=== PATIENT | male | born 1990 | race Hispanic/Latino ===

== ENCOUNTER 2018-11-28 07:08 | Emergency (ER) | payer BC ==
[2018-11-28 07:12] VITALS: BMI 26.6
[2018-11-28] MEDS ORDERED: Alum-Mag Hydrox-Simethicone Susp (30 mL) PO ONE (07:50)
[2018-11-28] MEDS ORDERED: Alum-Mag Hydrox-Simethicone Susp (30 mL) ONE (08:01)
--- NOTE | 2018-11-28 08:12 | ED PDOC ---
HPI: Abdomen Time Seen by Provider: 11/28/18 07:17 Chief Complaint (Nursing): Abdominal Pain Chief Complaint (Provider): Abdominal Pain History Per: Patient History/Exam Limitations: no limitations Onset/Duration Of Symptoms: Days (x5), Worse Since (x5 hours) Location Of Pain/Discomfort: Epigastric Quality Of Discomfort: Sharp Associated Symptoms: Nausea, Vomiting. denies: Fever, Urinary Symptoms Additional Complaint(s): 28 y/o male with no significant pmhx presents to ER for evaluation of sharp epigastric pain associated with 2 episodes of nausea and vomiting onset 5 hours ago. Patient reports pain has been progressively getting worse. He states he ate sushi yesterday and drank alcohol heavily on Wednesday night. Patient denies radiation of pain, fever, abnormal stools and any urinary symptoms. PMD: non provided Past Medical History Reviewed: Historical Data, Nursing Documentation, Vital Signs Vital Signs: Last Vital Signs Temp 97.5 F L 11/28/18 07:11 Pulse 89 11/28/18 07:11 Resp 17 11/28/18 07:11 BP 125/78 11/28/18 07:11 Pulse Ox 100 11/28/18 07:11 - Medical History PMH: No Chronic Diseases - Surgical History Surgical History: No Surg Hx - Family History Family History: States: Unknown Family Hx - Social History Current smoker - smoking cessation education provided: No Alcohol: Social Drugs: Denies - Home Medications Home Medications: Ambulatory Orders Medication Instructions Recorded Dicyclomine [Bentyl] 20 mg PO BID #30 tab 11/28/18 - Allergies Allergies/Adverse Reactions: Allergies Allergy/AdvReac Type Severity Reaction Status Date / Time No Known Allergies Allergy Verified 11/28/18 07:50 Review of Systems ROS Statement: Except As Marked, All Systems Reviewed And Found Negative Constitutional: Negative for: Fever Gastrointestinal: Positive for: Nausea, Vomiting, Abdominal Pain (epigastric). Negative for: Hematochezia Genitourinary Male: Negative for: Dysuria, Hematuria Physical Exam - Reviewed Nursing Documentation Reviewed: Yes Vital Signs Reviewed: Yes - Physical Exam Appears: Positive for: Non-toxic Head Exam: Positive for: ATRAUMATIC, NORMOCEPHALIC Skin: Positive for: Normal Color, Warm, Dry Eye Exam: Positive for: Normal appearance, EOMI, PERRL Neck: Positive for: Normal, Painless ROM, Supple Cardiovascular/Chest: Positive for: Regular Rate, Rhythm. Negative for: Murmur Respiratory: Positive for: Normal Breath Sounds. Negative for: Wheezing Gastrointestinal/Abdominal: Positive for: Soft, Tenderness (to palpation in epigastric area). Negative for: Guarding, Rebound Back: Positive for: Normal Inspection. Negative for: L CVA Tenderness, R CVA Tenderness Extremity: Positive for: Normal ROM. Negative for: Pedal Edema, Deformity Neurologic/Psych: Positive for: Alert, Oriented (x3) - Laboratory Results Result Diagrams: 11/28/18 08:50 11/28/18 08:50 - ECG O2 Sat by Pulse Oximetry: 100 (RA) Pulse Ox Interpretation: Normal Medical Decision Making Medical Decision Making: Time: 0750 A/P: Well appearing male with epigastric pain --Likely GERD vs. gastritis vs. peptic ulcer disease --Less likely pancreatitis or biliary disease 1000 --Pain traveled to R side of abdomen --CT ordered 1230 --CT shows possible early appendicitis, howver patient's symptoms have resolved --Surgery recommends IVF And outpatient followup, unlikely appendicitis 130 --Patient remains well appearing, nontender in RLQ --Advised fluids, bentyl --Advised patient to followup with PMD --Strict return precautions were discussed Scribe Attestation: Documented by Lisa Ma, acting as a scribe for Dipesh Red MD. Provider Scribe Attestation: All medical record entries made by the Scribe were at my direction and personally dictated by me. I have reviewed the chart and agree that the record accurately reflects my personal performance of the history, physical exam, medical decision making, and the department course for this patient. I have also personally directed, reviewed, and agree with the discharge instructions and disposition. Disposition - Clinical Impression Clinical Impression: Gastroenteritis - Disposition Referrals: [facility] [Outside] Disposition: Routine/Home Disposition Time: 13:31 Condition: IMPROVED Prescriptions: Dicyclomine [Bentyl] 20 mg PO BID #30 tab Instructions: Gastroenteritis (ED) Forms: [employer] (Macedonian)
[2018-11-28] MEDS ORDERED: Sodium Chloride 0.9% 1,000 ML IV STA ×2 (08:56→12:53)
[2018-11-28 09:03] LABS: HEMOGLOBIN 16.7 g/dL (12.0-18.0); MEAN CELL VOLUME 87.1 fl (80.0-94.0); MEAN CORPUSCULAR HEMOGLOBIN 30.2 pg (27.0-31.0); MEAN CORPUSCULAR HGB CONC 34.7 g/dL (33.0-37.0); RBC 5.51 Mil/uL (4.40-5.90); RED CELL DISTRIBUTION WIDTH 12.8 % (11.5-14.5); WHITE BLOOD COUNT 12.7 K/uL (4.8-10.8)
[2018-11-28] MEDS ORDERED: Morphine 4 MG/ML VIAL ONE (09:12)
[2018-11-28 09:23] LABS: ALB/GLOB RATIO 1.3 (1.0-2.1); ALBUMIN 4.9 g/dL (3.5-5.0); ALT/SGPT 120 U/L (21-72); AST/SGOT 78 U/L (17-59); BILIRUBIN,DIRECT 0.1 mg/ml (0.0-0.4); BLOOD UREA NITROGEN 16 mg/dl (9-20); CALCIUM 10.5 mg/dL (8.4-10.2); GFR NON-AFRICAN AMERICAN > 60; LIPASE 142 U/L (23-300)
[2018-11-28] MEDS ORDERED: Sodium Chloride 0.9% 50 ML IV ONE (10:21)
[2018-11-28] MEDS ORDERED: Iohexol 300 100 ML IJ ONE (10:21)
--- NOTE | 2018-11-28 12:02 | CT ---
Date of service: 11/28/2018 PROCEDURE: CT Abdomen and Pelvis with Oral contrast. HISTORY: epig, niyah-umb, R sided abd pain COMPARISON: TECHNIQUE: Contiguous axial images of the abdomen and pelvis performed following intravenous injection of approximately 95 cc Omnipaque 300 contrast material. Additional 2D sagittal and coronal flow reformats generated. Radiation dose: Total exam DLP = 576.67 mGy-cm. This CT exam was performed using one or more of the following dose reduction techniques: Automated exposure control, adjustment of the mA and/or kV according to patient size, and/or use of iterative reconstruction technique. FINDINGS: LOWER THORAX: Lung bases are clear. LIVER: Liver exhibits normal size though mild fatty infiltration. No obvious hepatic masses collections or calcifications. Portal and splenic veins are opacified... GALLBLADDER AND BILE DUCTS: Gallbladder physiologically distended. No evidence of intraluminal gallbladder calculi. PANCREAS: Unremarkable. No mass. No ductal dilatation. SPLEEN: Spleen is mildly enlarged measuring nearly over 13 cm in AP dimension. No splenic masses collections or calcifications. ADRENALS: No adrenal adrenal lesions.. KIDNEYS AND URETERS: Unremarkable. No stone or hydronephrosis. BLADDER: Urinary bladder is physiologically distended. No evidence of intraluminal urinary bladder calculi.. REPRODUCTIVE: Unremarkable. APPENDIX: The appendix diameter ranges between 5 and 6 mm which is equivocal however no definitive evidence of surrounding inflammatory changes seen at this time to suggest acute appendicitis however clinical correlation with history, physical exam and laboratory values recommended to exclude the possibility of a very early acute appendicitis. BOWEL: Evaluation of the bowel is somewhat limited due to the lack of oral contrast material. Stomach is distended with liquid food debris and air. Multiple fluid-filled loops of small bowel are present few which are minimally distended in the lower pelvis region. Findings may represent mild ileus however diarrheal illness should be considered... Clinical correlation recommended. Liquid stool is also present within the cecum with more desiccated stool in the transverse colon. The descending colon exhibits mild wall thickening which is likely due to a combination of incomplete distension peristalsis and unopacified bowel however possibility of inflammatory process cannot be completely excluded. There also appears to be a few scattered colonic diverticula along the sigmoid colon however no radiographic evidence to suggest acute diverticulitis. PERITONEUM: Unremarkable. No fluid collection. No free air. LYMPH NODES: Unremarkable. No enlarged lymph nodes. VASCULATURE: Unremarkable. No aortic aneurysm. No aortic atherosclerotic calcification or mural plaque present. BONES: Mild multilevel degenerative spondylosis of the thoracic and lumbar spine OTHER FINDINGS: None. IMPRESSION: The appendix some measured between 5 and 6 mm however no obvious inflammatory changes seen in the adjacent mesentery. Findings are equivocal for early acute appendicitis therefore clinical correlation recommended. There are numerous loops of fluid-filled small bowel some of which appears slightly distended in the lower pelvis possibly representing ileus; rule out diarrheal illness... There also mild wall thickening of the descending colon which is likely due to some combination of incomplete distension peristalsis and unopacified stool however a localized colitis cannot be excluded Borderline-mild splenomegaly. Mild fatty hepatic infiltration.
[2018-11-28 12:28] VITALS: TEMP 98.8
[2018-11-28 12:35] LABS: SQUAMOUS EPITHIAL < 1 /hpf (0-5); URINE BILIRUBIN NEGATIVE (NEGATIVE); URINE BLOOD NEGATIVE (NEGATIVE); URINE CLARITY CLEAR (Clear); URINE COLOR YELLOW (YELLOW); URINE GLUCOSE (UA) NEG (NEGATIVE); URINE LEUKOCYTE ESTERASE NEG Leu/uL (Negative); URINE PROTEIN NEGATIVE (NEGATIVE); URINE UROBILINOGEN 0.2-1.0 mg/dL (0.2-1.0)
--- NOTE | 2018-11-28 12:57 | CP.PCM.CON ---
History of Present Illness - History of Present Illness History of Present Illness: General Surgery Consult Note for Dr. Walton Consult: Early onset appendicitis CC: Abdominal pain HPI: 28 year old male, no significant past medical history, presents to the emergency department with abdominal pain, nausea, and vomiting. Patient states he had sushi for dinner and woke up around 3AM with severe 8/10 epigastric pain that did not radiate. He had 2 episodes of NBNB vomit. He has never had this type of pain before. He tried drinking tea and ibuprofen which did not help. Pain is currently 2/10. Last bowel movement was yesterday, normal caliber. Has not passed gas while in the ED. Admits to a subjective fever. Denies chills, diarrhea, shortness of breath, chest pain, or urinary symptoms. PMH: none PSH: none FH: noncontributory SH: denies tobacco and drugs, social drinker ALL: NKDA Meds: none Review of Systems - Constitutional Constitutional: Fever. absent: Chills - EENT Eyes: absent: Blurred Vision, Change in Vision Nose/Mouth/Throat: absent: Nasal Congestion, Nasal Discharge - Cardiovascular Cardiovascular: absent: Chest Pain, Dyspnea - Respiratory Respiratory: absent: Cough, Dyspnea - Gastrointestinal Gastrointestinal: Abdominal Pain, Nausea, Vomiting. absent: Diarrhea - Genitourinary Genitourinary: absent: Difficulty Urinating, Dysuria - Musculoskeletal Musculoskeletal: absent: Back Pain, Neck Pain - Integumentary Integumentary: absent: Bleeding Lesions, Changing Lesions - Neurological Neurological: absent: Confusion, Dizziness - Psychiatric Psychiatric: absent: Anxiety, Depression Past Patient History - Past Social History Alcohol: Social Drugs: Denies - PSYCHIATRIC Hx Substance Use: No - ANESTHESIA Hx Anesthesia: No Meds Allergies/Adverse Reactions: Allergies Allergy/AdvReac Type Severity Reaction Status Date / Time No Known Allergies Allergy Verified 11/28/18 07:50 Physical Exam - Constitutional Appears: Well, Non-toxic, No Acute Distress - Head Exam Head Exam: ATRAUMATIC, NORMAL INSPECTION, NORMOCEPHALIC - Eye Exam Eye Exam: EOMI - ENT Exam ENT Exam: Mucous Membranes Moist - Respiratory Exam Respiratory Exam: NORMAL BREATHING PATTERN. absent: Respiratory Distress - Cardiovascular Exam Cardiovascular Exam: REGULAR RHYTHM. absent: Tachycardia - GI/Abdominal Exam GI & Abdominal Exam: Normal Bowel Sounds, Soft. absent: Distended, Guarding, Rebound, Tenderness - Neurological Exam Neurological exam: Alert, Oriented x3 - Psychiatric Exam Psychiatric exam: Normal Affect, Normal Mood - Skin Skin Exam: Dry, Intact, Normal Color, Warm Results - Vital Signs Recent Vital Signs: Last Vital Signs Temp 98.8 F 11/28/18 12:27 Pulse 84 11/28/18 12:27 Resp 15 11/28/18 12:27 BP 122/57 L 11/28/18 12:27 Pulse Ox 100 11/28/18 12:27 - Labs Result Diagrams: 11/28/18 08:50 11/28/18 08:50 Labs: Laboratory Results - last 24 hr 11/28/18 11/28/18 08:50 08:50 WBC 12.7 H RBC 5.51 Hgb 16.7 Hct 47.9 MCV 87.1 MCH 30.2 MCHC 34.7 RDW 12.8 Plt Count 235 Sodium 139 Potassium 4.9 Chloride 102 Carbon Dioxide 25 Anion Gap 17 BUN 16 Creatinine 0.8 Est GFR ( Amer) > 60 Est GFR (Non-Af Amer) > 60 Random Glucose 104 Calcium 10.5 H Total Bilirubin 0.9 Direct Bilirubin 0.1 AST 78 H ALT 120 H Alkaline Phosphatase 47 Total Protein 8.8 H Albumin 4.9 Globulin 3.9 Albumin/Globulin Ratio 1.3 Lipase 142 Assessment & Plan - Assessment and Plan (Free Text) Assessment: 28M w/ abdominal pain, nausea vomiting likely 2/2 gastroenteritis Plan: 2L fluid bolus and oral hydration as tolerated liquid diet until symptoms resolve, advance diet as tolerated No surgical intervention at this present time If symptoms worsen, patient instructed to return to the ED for further evaluation D/w Dr. Anton Ortega PGY1
[2018-11-28 14:47] VITALS: BP 125/62; PULSE 78; RESP 13; O2SAT 97
== END 2018-11-28 13:45 | disposition home or self-care (01) ==
LOC: H.ER 07:08
DX: K52.9 Noninfective gastroenteritis and colitis, unspecified (principal)
CPT/HCPCS: 74177; 80048; 80076; 81003; 83690; 85027; 96361; 96374; 99285; J2270; J7030; Q9967